=== PATIENT | male | born 1980 ===

== ENCOUNTER → 2021-06-10 | Outpatient (CLI) | payer OTHER | LOC: SJCVCIMAG 05-06 08:04 | PROVIDERS: ATTEND Nuclear Medicine Nuclear Cardiology | DX: I87.2 Venous insufficiency (chronic) (peripheral) (principal); E11.9 Type 2 diabetes mellitus without complications; E78.5 Hyperlipidemia, unspecified; I10 Essential (primary) hypertension; K21.9 Gastro-esophageal reflux disease without esophagitis; Z88.0 Allergy status to penicillin; Z79.84 Long term (current) use of oral hypoglycemic drugs; Z79.899 Other long term (current) drug therapy ==